=== PATIENT | female | born 1960 | race Caucasian/White ===

== ENCOUNTER 2016-04-17 02:15 | Inpatient (IN) | payer OTHER ==
[~2016-04-17] VITALS: Ht 154.9 cm; Wt 93.3 kg
[~2016-04-17 02:15] MED LIST: ADVAIR 250/501 DISK IH; AMITIZA24 MICROGR PO; AMITIZA8 MICROGRA PO; ANTIVERT25 MG PO; ATIVAN1 MG PO; BENTYL10 MG PO; BUPROPION XL300 MG PO; CELEXA20 MG PO; CELEXA40 MG PO; CITALOPRAM HBR20 MG PO; DICYCLOMINE HCL20 MG PO; DILAUDID2 MG PO; DILAUDID4 MG PO; DILAUDID8 MG PO; DITROPAN5 MG PO; DONNATAL1 TABLET PO; ESOMEPRAZOLE MA40 MG PO; HYDROMORPHONE HC4 MG PO; INDERAL LA80 MG PO; KAPIDEX60 MG PO; LEVAQUIN750 MG PO; LIDODERM 5% P1 PATCH TD; LOMOTIL TABLET1 EACH PO; MULTIVITAMIN1 EAC2 PO; NEURONTIN400 MG PO; NEXIUM20 MG PO; NORVASC10 MG PO; NORVASC5 MG PO; PRAVACHOL40 MG; PRAVACHOL40 MG PO; PRAVASTATIN SOD40 MG PO; PREDNISONE20 MG PO; PREDNISONE50 MG PO; PREVACID15 MG PO; PRISTIQ100 MG PO; PROAIR HFA8.5 GM IH; PROMETHAZINE HC25 M1 PO; PROMETHEGAN12.5 MG PR; PROVENTIL,2.5 MG/3 M IH; PROZAC20 MG PO; PROZAC40 MG PO; SENOKOT,SENN1 TABLET PO; STOOL SOFTENER100 MG PO; SYMBICORT60 INHALA1 IH; THERAGRAN1 TABLET PO; WELLBUTRIN XL150 MG PO; WELLBUTRIN XL300 MG PO; ZANTAC150 MG PO; ZITHROMAX Z-PA250 MG PO; ZOCOR40 MG PO; ZOFRAN ODT4 MG PO; ZOFRAN4 MG PO
[2016-04-17 02:56] LABS: HEMATOCRIT 33.9 % (36.0-46.0); MCH 25.2 PG (29.0-34.0); MCHC 31.9 G/DL (30.0-36.0); MCV 79.2 FL (83-99); MEAN PLAT.VOLUME 10.5 uM^3 (9.5-12.4); PLATELET COUNT 223 K/uL (156-360); RBC DIS.WIDTH-CV 17.3 % (11.8-14.6); RBC DIS.WIDTH-SD 48.5 % (39-53); RED BLOOD COUNT 4.28 M/uL (3.80-5.20); WHITE BLOOD COUNT 12.8 K/uL (4.1-10.2)
[2016-04-17 03:06] LABS: CHLORIDE 106 mEq/L (99-109); POTASSIUM 3.2 mEq/L (3.7-5.4); SODIUM 141 mEq/L (136-147)
[2016-04-17 03:08] LABS: GLUCOSE 124 mg/dL (70-99)
[2016-04-17 03:09] LABS: ANION GAP 11 MEQ/L (2-14)
[2016-04-17 03:12] LABS: GFR ESTIMATE (CALCULATED) > 59 mL/min/
[2016-04-17 03:13] LABS: UREA NITROGEN (BUN) 10 mg/dL (9-23)
[2016-04-17 04:55] LABS: D-DIMER ELISA 0.58 mg/L FEU (< 0.57)
[2016-04-17 05:48] LABS: TROP-I INTERPRETATION NEGATIVE; TROPONIN-I < 0.01 ng/mL (0.0-0.30)
[2016-04-17 07:58] LABS: BASE EXCESS 0.4 mEq/L (-3 to +3); BICARBONATE 24.6 mEq/L (22-26); CARBOXY HGB 2.2 % (0-5); COMMENTS - BLOOD GASES A+C+; METHEMOGLOBIN 1.1 % (0-1.5); PCO2 37 mm Hg (35-45); PO2 50 mm Hg (80-100); SITE RR; pH 7.43 (7.35-7.45)
[2016-04-17 07:59] LABS: DEVICE NC; O2 FLOW 4 L/MIN; TOTAL RESP RATE 24 resp/min
[2016-04-17] MEDS ORDERED: LEVAQUIN750 MG PO (08:31)
[2016-04-17] MEDS ORDERED: NEXIUM40 MG PO (08:33)
[2016-04-17] MEDS ORDERED: WELLBUTRIN XL300 MG PO (08:36)
[2016-04-17] MEDS ORDERED: PREDNISONE50 MG PO (08:36)
[2016-04-17] MEDS ORDERED: ATIVAN1 MG PO (08:59)
[2016-04-17 12:26] LABS: TROP-I INTERPRETATION NEGATIVE; TROPONIN-I < 0.01 ng/mL (0.0-0.30)
[2016-04-17 15:20] VITALS: BP 97/54
[2016-04-17 18:52] LABS: TROP-I INTERPRETATION NEGATIVE; TROPONIN-I < 0.01 ng/mL (0.0-0.30)
[2016-04-17 19:34] VITALS: BP 123/70
[2016-04-17 23:18] VITALS: BP 119/75
[2016-04-18 03:26] VITALS: BP 131/80
[2016-04-18 06:42] LABS: MCH 25.1 PG (29.0-34.0); MCHC 31.6 G/DL (30.0-36.0); MCV 79.3 FL (83-99); MEAN PLAT.VOLUME 10.3 uM^3 (9.5-12.4); PLATELET COUNT 201 K/uL (156-360); RBC DIS.WIDTH-CV 17.3 % (11.8-14.6); RBC DIS.WIDTH-SD 50.3 % (39-53); RED BLOOD COUNT 3.91 M/uL (3.80-5.20)
[2016-04-18 07:12] LABS: ANION GAP 12 MEQ/L (2-14); CHLORIDE 110 MEQ/L (99-109); GFR ESTIMATE (CALCULATED) > 59 mL/min/; GLUCOSE 137 mg/dL (70-99); POTASSIUM 3.1 MEQ/L (3.7-5.4); SAMPLE HEMOLYSIS CHECK 0; SAMPLE ICTERIC CHECK 0; SAMPLE LIPEMIA CHECK 0; SODIUM 146 MEQ/L (136-147); UREA NITROGEN (BUN) 10 mg/dL (9-23)
[2016-04-18 07:37] LABS: INTERNAL CONTROL VALID? YES
[2016-04-18 08:27] VITALS: BP 138/56
[2016-04-18 13:56] VITALS: BP 126/57
[2016-04-18 15:00] VITALS: BP 117/68
[2016-04-18 19:37] VITALS: BP 155/74
[2016-04-19] VITALS: BP 125/74
[2016-04-19 04:00] VITALS: BP 145/85
[2016-04-19 07:09] LABS: HEMATOCRIT 31.3 % (36.0-46.0); MCH 25.3 PG (29.0-34.0); MCHC 31.6 G/DL (30.0-36.0); MCV 79.8 FL (83-99); MEAN PLAT.VOLUME 10.5 uM^3 (9.5-12.4); PLATELET COUNT 232 K/uL (156-360); RBC DIS.WIDTH-CV 17.5 % (11.8-14.6); RBC DIS.WIDTH-SD 51.2 % (39-53); RED BLOOD COUNT 3.92 M/uL (3.80-5.20); WHITE BLOOD COUNT 14.7 K/uL (4.1-10.2)
[2016-04-19 07:23] LABS: EOSINOPHIL (%) 0 % (0-5); IMMATURE GRANULOCYTE (%) 1.6 % (0.0-0.7); IMMATURE GRANULOCYTE COUNT 0.2 K/uL; LYMPHOCYTE COUNT 0.7 K/uL (1.0-2.8); MONOCYTE COUNT 0.9 K/uL (0-0.8); NEUTROPHIL (%) 87.8 % (45-76); NEUTROPHIL COUNT 12.9 K/uL (1.8-6.4)
[2016-04-19 07:40] LABS: ANION GAP 11 MEQ/L (2-14); CHLORIDE 109 MEQ/L (99-109); GFR ESTIMATE (CALCULATED) > 59 mL/min/; GLUCOSE 148 mg/dL (70-99); POTASSIUM 3.6 MEQ/L (3.7-5.4); SAMPLE HEMOLYSIS CHECK 0; SAMPLE ICTERIC CHECK 0; SAMPLE LIPEMIA CHECK 0; SODIUM 143 MEQ/L (136-147); UREA NITROGEN (BUN) 14 mg/dL (9-23)
[2016-04-19 08:15] LABS: BASE EXCESS 1.9 mEq/L (-3 to +3); BICARBONATE 26.6 mEq/L (22-26); CARBOXY HGB 1.7 % (0-5); METHEMOGLOBIN 1.5 % (0-1.5); PCO2 41 mm Hg (35-45); pH 7.42 (7.35-7.45)
[2016-04-19 08:16] LABS: COMMENTS - BLOOD GASES A+C+; DEVICE HHFNC; FI02 80 %; O2 FLOW 40 L/MIN; PO2 79 mm Hg (80-100); SITE RRA; TOTAL RESP RATE 20 resp/min
[2016-04-19 09:34] VITALS: BP 119/73
[2016-04-19 12:44] VITALS: BP 119/68
[2016-04-19 17:33] VITALS: BP 120/71
[2016-04-19 20:00] VITALS: BP 109/65
[2016-04-20] VITALS: BP 110/74
[2016-04-20 04:00] VITALS: BP 100/67
[2016-04-20 08:29] VITALS: BP 117/69
[2016-04-20 09:48] LABS: HEMATOCRIT 30.7 % (36.0-46.0); MCH 25.1 PG (29.0-34.0); MCHC 31.9 G/DL (30.0-36.0); MCV 78.5 FL (83-99); MEAN PLAT.VOLUME 10.3 uM^3 (9.5-12.4); PLATELET COUNT 252 K/uL (156-360); RBC DIS.WIDTH-CV 17.5 % (11.8-14.6); RBC DIS.WIDTH-SD 50.3 % (39-53); RED BLOOD COUNT 3.91 M/uL (3.80-5.20); WHITE BLOOD COUNT 13.9 K/uL (4.1-10.2)
[2016-04-20 10:17] LABS: ANION GAP 10 MEQ/L (2-14); CHLORIDE 108 MEQ/L (99-109); GFR ESTIMATE (CALCULATED) > 59 mL/min/; GLUCOSE 115 mg/dL (70-99); POTASSIUM 3.3 MEQ/L (3.7-5.4); SAMPLE HEMOLYSIS CHECK 0; SAMPLE ICTERIC CHECK 0; SAMPLE LIPEMIA CHECK 0; SODIUM 144 MEQ/L (136-147); UREA NITROGEN (BUN) 15 mg/dL (9-23)
[2016-04-20 11:17] VITALS: BP 112/64
[2016-04-20 15:51] VITALS: BP 111/67
[2016-04-20 19:49] VITALS: BP 119/65
[2016-04-21 00:14] VITALS: BP 111/66
[2016-04-21 04:25] VITALS: BP 113/61
[2016-04-21 07:49] VITALS: BP 117/74
[2016-04-21 11:42] VITALS: BP 108/60
[2016-04-21 15:49] VITALS: BP 116/38; BP 116/68
[2016-04-21 19:15] VITALS: BP 119/66
[2016-04-22 00:12] VITALS: BP 123/72
[2016-04-22 04:09] VITALS: BP 145/70
[2016-04-22 04:34] LABS: HEMATOCRIT 30.8 % (36.0-46.0); MCH 25.1 PG (29.0-34.0); MCHC 31.8 G/DL (30.0-36.0); MEAN PLAT.VOLUME 9.6 uM^3 (9.5-12.4); PLATELET COUNT 304 K/uL (156-360); RBC DIS.WIDTH-CV 17.5 % (11.8-14.6); WHITE BLOOD COUNT 17.3 K/uL (4.1-10.2)
[2016-04-22 04:41] LABS: CHLORIDE 105 mEq/L (99-109); POTASSIUM 3.8 mEq/L (3.7-5.4); SODIUM 141 mEq/L (136-147)
[2016-04-22 04:43] LABS: GLUCOSE 162 mg/dL (70-99)
[2016-04-22 04:44] LABS: ANION GAP 8 MEQ/L (2-14)
[2016-04-22 04:45] LABS: TOTAL BILIRUBIN 0.4 mg/dL (0.0-1.0)
[2016-04-22 04:46] LABS: ALKALINE PHOSPHATASE 63 IU/L (3-129)
[2016-04-22 04:47] LABS: GFR ESTIMATE (CALCULATED) > 59 mL/min/
[2016-04-22 04:48] LABS: UREA NITROGEN (BUN) 17 mg/dL (9-23)
[2016-04-22 05:30] LABS: ABS NEUTROPHIL COUNT 15.95; ANISOCYTOSIS 2+; EOSINOPHIL (%) 0 % (0-5); HYPOCHROMASIA 2+; IMMATURE GRANULOCYTE (%) 5.5 % (0.0-0.7); IMMATURE GRANULOCYTE COUNT 9.6 K/uL; LYMPHOCYTE COUNT 0.9 K/uL (1.0-2.8); MACROCYTES 1+; MICROCYTOSIS 1+; MONOCYTE (%) 3.7 % (3-12); MONOCYTE COUNT 0.7 K/uL (0-0.8); NEUTROPHIL (%) 85.3 % (45-76); NEUTROPHIL COUNT 14.8 K/uL (1.8-6.4); OVALOCYTES 1+; PLAT.SUFFICIENCY ADEQUATE; POLYCHROMASIA OCC; USER ID DCS
[2016-04-22 07:38] LABS: POINT-OF-CARE METER ID UU14174216
[2016-04-22 08:08] VITALS: BP 118/73
[2016-04-22 12:00] VITALS: BP 111/61
[2016-04-22 16:00] VITALS: BP 114/65
[2016-04-23] VITALS (7 sets, daily range): BP systolic 11–133; BP diastolic 63–83
[2016-04-23 06:47] LABS: HEMATOCRIT 31.3 % (36.0-46.0); MCH 25.3 PG (29.0-34.0); MCHC 31.3 G/DL (30.0-36.0); MCV 80.7 FL (83-99); MEAN PLAT.VOLUME 9.7 uM^3 (9.5-12.4); PLATELET COUNT 284 K/uL (156-360); RBC DIS.WIDTH-CV 17.7 % (11.8-14.6); RBC DIS.WIDTH-SD 51.4 % (39-53); RED BLOOD COUNT 3.88 M/uL (3.80-5.20); WHITE BLOOD COUNT 18.6 K/uL (4.1-10.2)
[2016-04-23 07:20] LABS: ALKALINE PHOSPHATASE 60 IU/L (3-129); ANION GAP 9 MEQ/L (2-14); CHLORIDE 103 MEQ/L (99-109); GFR ESTIMATE (CALCULATED) > 59 mL/min/; GLUCOSE 142 mg/dL (70-99); POTASSIUM 4.2 MEQ/L (3.7-5.4); SAMPLE HEMOLYSIS CHECK 0; SAMPLE ICTERIC CHECK 0; SAMPLE LIPEMIA CHECK 0; SODIUM 142 MEQ/L (136-147); TOTAL BILIRUBIN 0.4 MG/DL (0.0-1.0); UREA NITROGEN (BUN) 18 mg/dL (9-23)
[2016-04-23 07:26] LABS: ANISOCYTOSIS 1+; EOSINOPHIL (%) 0.1 % (0-5); IMMATURE GRANULOCYTE COUNT 1.1 K/uL; LYMPHOCYTE COUNT 0.9 K/uL (1.0-2.8); MACROCYTES OCC; MONOCYTE (%) 3.8 % (3-12); MONOCYTE COUNT 0.7 K/uL (0-0.8); NEUTROPHIL (%) 85.2 % (45-76); NEUTROPHIL COUNT 15.9 K/uL (1.8-6.4); OVALOCYTES OCC; PLAT.SUFFICIENCY ADEQUATE; USER ID CCL
[2016-04-24 03:20] VITALS: BP 135/64
[2016-04-24 06:27] LABS: HEMATOCRIT 31.8 % (36.0-46.0); MCH 25.1 PG (29.0-34.0); MCHC 31.1 G/DL (30.0-36.0); MCV 80.5 FL (83-99); MEAN PLAT.VOLUME 9.6 uM^3 (9.5-12.4); PLATELET COUNT 252 K/uL (156-360); RBC DIS.WIDTH-CV 17.7 % (11.8-14.6); RBC DIS.WIDTH-SD 52.5 % (39-53); RED BLOOD COUNT 3.95 M/uL (3.80-5.20); WHITE BLOOD COUNT 17.7 K/uL (4.1-10.2)
[2016-04-24 07:04] LABS: ALKALINE PHOSPHATASE 55 IU/L (3-129); ANION GAP 6 MEQ/L (2-14); CHLORIDE 101 MEQ/L (99-109); GFR ESTIMATE (CALCULATED) > 59 mL/min/; GLUCOSE 136 mg/dL (70-99); POTASSIUM 4.5 MEQ/L (3.7-5.4); SAMPLE HEMOLYSIS CHECK 0; SAMPLE ICTERIC CHECK 0; SAMPLE LIPEMIA CHECK 0; SODIUM 139 MEQ/L (136-147); TOTAL BILIRUBIN 0.4 MG/DL (0.0-1.0); UREA NITROGEN (BUN) 17 mg/dL (9-23)
[2016-04-24 07:28] LABS: ABS NEUTROPHIL COUNT 15.41; ANISOCYTOSIS 1+; EOSINOPHIL (%) 0.1 % (0-5); IMMATURE GRANULOCYTE (%) 6.4 % (0.0-0.7); IMMATURE GRANULOCYTE COUNT 1.1 K/uL; LYMPHOCYTE COUNT 0.8 K/uL (1.0-2.8); MONOCYTE (%) 4.5 % (3-12); MONOCYTE COUNT 0.8 K/uL (0-0.8); NEUTROPHIL (%) 84.2 % (45-76); NEUTROPHIL COUNT 14.9 K/uL (1.8-6.4); OVALOCYTES OCC; PLAT.SUFFICIENCY ADEQUATE; POLYCHROMASIA OCC; USER ID SDF
[2016-04-24 07:40] VITALS: BP 141/81
[2016-04-24 12:08] VITALS: BP 112/62
[2016-04-24 16:01] VITALS: BP 127/75
[2016-04-24 19:58] VITALS: BP 114/78
[2016-04-25] VITALS: BP 122/75
[2016-04-25 04:00] VITALS: BP 144/74
[2016-04-25 06:38] LABS: HEMATOCRIT 32.4 % (36.0-46.0); MCH 24.9 PG (29.0-34.0); MCHC 30.9 G/DL (30.0-36.0); MCV 80.8 FL (83-99); MEAN PLAT.VOLUME 9.3 uM^3 (9.5-12.4); PLATELET COUNT 257 K/uL (156-360); RBC DIS.WIDTH-CV 17.9 % (11.8-14.6); RBC DIS.WIDTH-SD 52.5 % (39-53); RED BLOOD COUNT 4.01 M/uL (3.80-5.20); WHITE BLOOD COUNT 16.3 K/uL (4.1-10.2)
[2016-04-25 07:07] LABS: ALKALINE PHOSPHATASE 55 IU/L (3-129); ANION GAP 6 MEQ/L (2-14); CHLORIDE 100 MEQ/L (99-109); GFR ESTIMATE (CALCULATED) > 59 mL/min/; POTASSIUM 3.7 MEQ/L (3.7-5.4); SAMPLE HEMOLYSIS CHECK 0; SAMPLE ICTERIC CHECK 0; SAMPLE LIPEMIA CHECK 0; SODIUM 139 MEQ/L (136-147); UREA NITROGEN (BUN) 15 mg/dL (9-23)
[2016-04-25 07:08] LABS: GLUCOSE 75 mg/dL (70-99); TOTAL BILIRUBIN 0.3 MG/DL (0.0-1.0)
[2016-04-25 07:27] LABS: ABS NEUTROPHIL COUNT 13.17; ANISOCYTOSIS 1+; EOSINOPHIL (%) 0.4 % (0-5); EOSINOPHIL COUNT 0.1 K/uL (0-0.3); HYPOCHROMASIA 1+; IMMATURE GRANULOCYTE (%) 6.2 % (0.0-0.7); MONOCYTE (%) 5.4 % (3-12); MONOCYTE COUNT 0.9 K/uL (0-0.8); NEUTROPHIL (%) 75.3 % (45-76); NEUTROPHIL COUNT 12.2 K/uL (1.8-6.4); PLAT.SUFFICIENCY ADEQUATE; USER ID NJR
[2016-04-25 09:02] VITALS: BP 123/74
[2016-04-25 13:14] VITALS: BP 107/67
[2016-04-25 16:42] VITALS: BP 126/73
[2016-04-25 19:15] VITALS: BP 108/60
[2016-04-26] VITALS: BP 130/75
[2016-04-26 03:40] VITALS: BP 134/80
[2016-04-26 07:46] VITALS: BP 127/83
[2016-04-26 08:21] LABS: ANION GAP 6 MEQ/L (2-14); CHLORIDE 102 MEQ/L (99-109); GFR ESTIMATE (CALCULATED) > 59 mL/min/; POTASSIUM 4.4 MEQ/L (3.7-5.4); SAMPLE HEMOLYSIS CHECK 0; SAMPLE ICTERIC CHECK 0; SAMPLE LIPEMIA CHECK 0; SODIUM 141 MEQ/L (136-147); UREA NITROGEN (BUN) 14 mg/dL (9-23)
[2016-04-26 08:23] LABS: GLUCOSE 146 mg/dL (70-99)
[2016-04-26 09:01] LABS: ABS NEUTROPHIL COUNT 11.49; ANISOCYTOSIS 1+; EOSINOPHIL (%) 0 % (0-5); HEMATOCRIT 34.1 % (36.0-46.0); HYPOCHROMASIA 1+; IMMATURE GRANULOCYTE COUNT 0.8 K/uL; LYMPHOCYTE COUNT 0.8 K/uL (1.0-2.8); MACROCYTES OCC; MCH 25.5 PG (29.0-34.0); MCHC 31.7 G/DL (30.0-36.0); MCV 80.4 FL (83-99); MEAN PLAT.VOLUME 9.6 uM^3 (9.5-12.4); MONOCYTE COUNT 0.4 K/uL (0-0.8); NEUTROPHIL COUNT 11.6 K/uL (1.8-6.4); PLAT.SUFFICIENCY ADEQUATE; PLATELET COUNT 253 K/uL (156-360); RBC DIS.WIDTH-SD 52.6 % (39-53); RED BLOOD COUNT 4.24 M/uL (3.80-5.20); USER ID CCL; WHITE BLOOD COUNT 13.7 K/uL (4.1-10.2)
[2016-04-26 11:46] VITALS: BP 135/81
[2016-04-26 15:23] VITALS: BP 106/63
[2016-04-26 16:19] LABS: HEMATOCRIT 30.1 % (36.0-46.0); MCH 25.4 PG (29.0-34.0); MCHC 31.6 G/DL (30.0-36.0); MCV 80.5 FL (83-99); MEAN PLAT.VOLUME 9.3 uM^3 (9.5-12.4); PLATELET COUNT 232 K/uL (156-360); RBC DIS.WIDTH-CV 18.3 % (11.8-14.6); RBC DIS.WIDTH-SD 53.5 % (39-53); RED BLOOD COUNT 3.74 M/uL (3.80-5.20); WHITE BLOOD COUNT 13.5 K/uL (4.1-10.2)
[2016-04-26 16:33] LABS: INTER. NORMALIZED RATIO 1.2
[2016-04-26 23:20] VITALS: BP 119/71
[2016-04-27 07:41] LABS: HEMATOCRIT 32.6 % (36.0-46.0); MCH 25.6 PG (29.0-34.0); MCHC 31.9 G/DL (30.0-36.0); MCV 80.1 FL (83-99); MEAN PLAT.VOLUME 9.2 uM^3 (9.5-12.4); PLATELET COUNT 235 K/uL (156-360); RBC DIS.WIDTH-CV 18.3 % (11.8-14.6); RBC DIS.WIDTH-SD 52.7 % (39-53); RED BLOOD COUNT 4.07 M/uL (3.80-5.20); WHITE BLOOD COUNT 12.2 K/uL (4.1-10.2)
[2016-04-27 07:52] VITALS: BP 162/85
[2016-04-27 08:29] LABS: ANION GAP 10 MEQ/L (2-14); CHLORIDE 102 MEQ/L (99-109); GFR ESTIMATE (CALCULATED) > 59 mL/min/; GLUCOSE 137 mg/dL (70-99); POTASSIUM 4.4 MEQ/L (3.7-5.4); SAMPLE HEMOLYSIS CHECK 0; SAMPLE ICTERIC CHECK 0; SAMPLE LIPEMIA CHECK 0; SODIUM 143 MEQ/L (136-147); UREA NITROGEN (BUN) 14 mg/dL (9-23)
[2016-04-27 09:19] LABS: EOSINOPHIL (%) 0 % (0-5); HEMATOLOGY COMMENT 1 SMEAR COMPATIBLE; IMMATURE GRANULOCYTE COUNT 0.6 K/uL; LYMPHOCYTE COUNT 0.8 K/uL (1.0-2.8); MONOCYTE (%) 4.2 % (3-12); MONOCYTE COUNT 0.5 K/uL (0-0.8); NEUTROPHIL (%) 84.6 % (45-76); NEUTROPHIL COUNT 10.3 K/uL (1.8-6.4); USER ID STC
[2016-04-27] MEDS ORDERED: LEVAQUIN750 MG PO (12:23)
[2016-04-27] MEDS ORDERED: MUCINEX600 MG PO (12:24)
[2016-04-27] MEDS ORDERED: THERAGRAN1 TABLET PO (12:25)
[2016-04-27] MEDS ORDERED: PREDNISONE20 MG PO (12:25)
== END 2016-04-27 13:42 | disposition home health service (06) | DRG 190 ==
LOC: EME 02:15 → EDOF 07:42 → 4EAST 07:42 → EDOF 08:41 → 4EAST 15:07 → 2EAST 04-25 12:23
PROVIDERS: Hospitalist; Internal Medicine; Internal Medicine Pulmonary Disease; Nurse Practitioner Adult Health; Physician Assistant; Physician Assistant Medical
DX: J44.1 Chronic obstructive pulmonary disease with (acute) exacerbation (principal); J96.01 Acute respiratory failure with hypoxia; J18.9 Pneumonia, unspecified organism; J98.11 Atelectasis; K92.1 Melena; E87.6 Hypokalemia; F17.210 Nicotine dependence, cigarettes, uncomplicated; F32.9 Major depressive disorder, single episode, unspecified; F41.9 Anxiety disorder, unspecified; K21.9 Gastro-esophageal reflux disease without esophagitis; D72.823 Leukemoid reaction; D64.9 Anemia, unspecified; K59.00 Constipation, unspecified; E66.9 Obesity, unspecified; Z88.5 Allergy status to narcotic agent; Z68.39 Body mass index [BMI] 39.0-39.9, adult; Z83.3 Family history of diabetes mellitus; Z80.9 Family history of malignant neoplasm, unspecified
CPT/HCPCS: 36600; 71010; 71020; 71275; 80048; 80053; 80200; 81003; 82803; 82948; 83605; 83880; 84484; 85025; 85027; 85379; 85610; 87040; 87070; 87106; 87205; 87449; 87502; 93005; 93306; 93970; 94010; 94640; 94640 76; 94644; 94667; 94668; 94760; 94799; 99202; 99281; 99285; J0456; J0692; J0696; J1100; J1650; J1956; J2930; J3010; J3260; J7030; J7050; J7512; J7644

== ENCOUNTER 2016-05-04 02:14 | Observation (INO) | payer OTHER ==
[~2016-05-04] VITALS: Ht 154.9 cm; Wt 99.3 kg
[~2016-05-04 02:14] MED LIST changes: +MUCINEX600 MG PO; +NEXIUM40 MG PO
[2016-05-04 03:05] LABS: HEMATOCRIT 34.3 % (36.0-46.0); MCH 25.2 PG (29.0-34.0); MCHC 30.6 G/DL (30.0-36.0); MCV 82.3 FL (83-99); RBC DIS.WIDTH-SD 57.8 % (39-53); RED BLOOD COUNT 4.17 M/uL (3.80-5.20)
[2016-05-04 03:16] LABS: CHLORIDE 102 mEq/L (99-109)
[2016-05-04 03:17] LABS: POTASSIUM 3.6 mEq/L (3.7-5.4); SODIUM 140 mEq/L (136-147)
[2016-05-04 03:18] LABS: GLUCOSE 86 mg/dL (70-99)
[2016-05-04 03:20] LABS: ANION GAP 11 MEQ/L (2-14)
[2016-05-04 03:22] LABS: GFR ESTIMATE (CALCULATED) > 59 mL/min/
[2016-05-04 03:23] LABS: UREA NITROGEN (BUN) 11 mg/dL (9-23)
[2016-05-04 03:25] LABS: CARBON DIOXIDE (BICARBONATE) 33.5 MEQ/L (20-31); TROP-I INTERPRETATION NEGATIVE; TROPONIN-I < 0.01 ng/mL (0.0-0.30)
[2016-05-04 04:01] LABS: WHITE BLOOD COUNT 6.4 K/uL (4.1-10.2)
[2016-05-04 04:22] LABS: MEAN PLAT.VOLUME 9.6 uM^3 (9.5-12.4); PLATELET COUNT 160 K/uL (156-360)
[2016-05-04 07:57] VITALS: BP 140/87
[2016-05-04] MEDS ORDERED: CELEXA40 MG PO (12:45)
[2016-05-04] MEDS ORDERED: MINIPRESS1 MG PO (12:49)
[2016-05-04] MEDS ORDERED: AMITIZA24 MICROGR PO (12:50)
[2016-05-04] MEDS ORDERED: LIDOCAINE700 MG TD (12:52)
[2016-05-04 16:14] VITALS: BP 140/85
[2016-05-04 19:50] VITALS: BP 134/86
[2016-05-04 23:46] VITALS: BP 132/76
[2016-05-05 04:04] VITALS: BP 128/72
[2016-05-05 07:34] VITALS: BP 108/62
[2016-05-05] MEDS ORDERED: NICOTINE PATCH1 EACH TD (14:55)
[2016-05-05] MEDS ORDERED: PREDNISONE10 MG PO (14:55)
[2016-05-05] MEDS ORDERED: DUONEB 2.5-0.5 M3 ML AEROSOL (14:55)
[2016-05-05] MEDS ORDERED: AZITHROMYCIN500 M1 PO (14:55)
== END 2016-05-05 16:53 | disposition home or self-care (01) ==
LOC: EME → EDBD 02:14 → EME 02:14 → 3EAST 04:25 → EDOF 04:25 → 3EAST 05:07
PROVIDERS: Emergency Medicine
DX: J44.1 Chronic obstructive pulmonary disease with (acute) exacerbation (principal); R09.02 Hypoxemia; F41.9 Anxiety disorder, unspecified; F32.9 Major depressive disorder, single episode, unspecified; G89.29 Other chronic pain; Z91.19 Patient's noncompliance with other medical treatment and regimen; F17.210 Nicotine dependence, cigarettes, uncomplicated; Z88.5 Allergy status to narcotic agent; Z88.8 Allergy status to other drugs, medicaments and biological substances; Z80.9 Family history of malignant neoplasm, unspecified; Z83.3 Family history of diabetes mellitus
CPT/HCPCS: 71020; 80048; 82803; 83605; 83880; 84484; 85027; 87040; 93005; 94640; 94640 76; 94799; 99202; 99281; 99285; G0378; J1100; J1650; J2930; J7644

== ENCOUNTER 2017-11-04 13:11 | Emergency (ER) | payer OTHER ==
[~2017-11-04] VITALS: Ht 154.9 cm; Wt 81.3 kg
[~2017-11-04 13:11] MED LIST changes: +AZITHROMYCIN500 M1 PO; +DUONEB 2.5-0.5 M3 ML AEROSOL; +LIDOCAINE700 MG TD; +MINIPRESS1 MG PO; +NICOTINE PATCH1 EACH TD; +PREDNISONE10 MG PO
[2017-11-04 17:07] LABS: HEMATOCRIT 37.1 % (36.0-46.0); HEMOGLOBIN 11.7 G/DL (11.9-15.5); MCH 22.5 PG (29.0-34.0); MCHC 31.5 G/DL (30.0-36.0); MCV 71.5 FL (83-99); PLATELET COUNT 194 K/uL (156-360); RBC DIS.WIDTH-CV 18.6 % (11.8-14.6); RBC DIS.WIDTH-SD 46.1 % (39-53); RED BLOOD COUNT 5.19 M/uL (3.80-5.20); WHITE BLOOD COUNT 7.8 K/uL (4.1-10.2)
[2017-11-04 17:09] LABS: CHLORIDE 108 mEq/L (99-109); SODIUM 146 mEq/L (136-147)
[2017-11-04 17:11] LABS: GLUCOSE 88 mg/dL (70-99)
[2017-11-04 17:15] LABS: CREATININE 0.9 mg/dL (0.6-1.3); GFR ESTIMATE (CALCULATED) > 59 mL/min/
[2017-11-04 17:16] LABS: UREA NITROGEN (BUN) 12 mg/dL (9-23)
[2017-11-04 18:27] VITALS: BP 143/98
== END 2017-11-04 18:28 | disposition home or self-care (01) ==
LOC: EME 13:11
PROVIDERS: Emergency Medicine
DX: H81.399 Other peripheral vertigo, unspecified ear (principal); R94.02 Abnormal brain scan; I10 Essential (primary) hypertension; J44.9 Chronic obstructive pulmonary disease, unspecified; E78.5 Hyperlipidemia, unspecified; F43.10 Post-traumatic stress disorder, unspecified; F41.9 Anxiety disorder, unspecified; F17.200 Nicotine dependence, unspecified, uncomplicated; Z79.51 Long term (current) use of inhaled steroids; Z86.19 Personal history of other infectious and parasitic diseases; Z86.69 Personal history of other diseases of the nervous system and sense organs; Z87.19 Personal history of other diseases of the digestive system; Z87.39 Personal history of other diseases of the musculoskeletal system and connective tissue; Z98.890 Other specified postprocedural states; Z88.5 Allergy status to narcotic agent; Z88.6 Allergy status to analgesic agent
CPT/HCPCS: 70551; 80048; 85027; 99281; 99284; J7030